=== PATIENT | male | born 1980 | race Caucasian/White ===

== ENCOUNTER → 2019-07-01 | Day surgery (SDC) | payer SELFPAY ==
[~2019-07-01] MED LIST: Bupivacaine 0.5%/EPINEPHrine 1:200,000 50 ML MDV ONE; Dexamethasone 4 MG/ML 5 ML MDV ONE; HYDROmorphone 0.5 MG/0.5 ML Syringe IVPUSH PRN; HYDROmorphone 0.5 MG/0.5 ML Syringe ONE; Iopamidol 612 MG/ML 100 ML Bottle IVPUSH ONE; Lactated Ringers 1,000 ML IV SCH; Lactated Ringers 1,000 ML ONE; Lidocaine 1% 4 ML ONE; Lidocaine 1% with EPINEPHrine 1:100,000 20 ML MDV ONE; Midazolam 1 MG/ML 2 ML SDV ONE; Ondansetron 4 MG/2 ML SDV IVPUSH PRN; Ondansetron 4 MG/2 ML SDV ONE; Propofol 200 MG/20 ML SDV ONE; Rocuronium 50 MG/5 ML Vial ONE; Sodium Chloride 0.9% 1,000 ML IV ONE; Sodium Chloride 0.9% 1,000 ML IV SCH; Sodium Chloride 0.9% 10 ML Syringe FLUSH PRN; Succinylcholine/Sod PF 100 MG/5 ML SYRINGE IV ONE; cefOXitin 2 GM in Premix Bag 1 BAG IV ONE; fentaNYL 100 MCG/2 ML SDV IVPUSH PRN; fentaNYL 250 MCG/5 ML SDV ONE; metroNIDAZOLE/Normal Saline 500 MG in Premix Bag 1 BAG IV ONE
--- NOTE | 2019-07-01 16:46 | EDM.PDOC ---
ED HPI GENERAL MEDICAL PROBLEM - General Chief Complaint: Abdominal Pain Stated Complaint: LOWER ABDOMINAL PAIN Time Seen by Provider: 07/01/19 15:49 Source of Information: Reports: Patient History Limitations: Reports: No Limitations - History of Present Illness INITIAL COMMENTS - FREE TEXT/NARRATIVE: TRIAGE NOTE -- pt presents to ER with c/o of mid lower abdominal pain N/V x 5 hours. repprts last bm yesterday and that he is urinating per his norm. denies recent illness, denies fever. c/o occassional chills. As above. No respiratory symptoms. No chest pain. No fever. No dysuria. No symptom of acute medical illness otherwise. No identified risk factors though the patient does chew tobacco. He has not taken any medication or tried any other measure to moderate symptoms. Patient is nauseated at this time. His abdominal pain is more like an discomfort on exam. Last bowel movement yesterday which was noted to be semi-formed. The patient does have probable issues with constipation. He wonders if "I might be plugged up." Lower Abdominal Pain Score (Numeric/FACES): 9 - Related Data Allergies Allergy/AdvReac Type Severity Reaction Status Date / Time No Known Allergies Allergy Verified 07/01/19 15:30 Home Meds: Home Meds . [No Known Home Meds] 05/01/14 [History] Past Medical History - Past Health History Medical/Surgical History: Denies Medical/Surgical History Social & Family History - Tobacco Use Tobacco Use Within Last Twelve Months: Smokeless Tobacco - Caffeine Use Caffeine Use: Reports: Coffee, Energy Drinks, Soda, Tea - Recreational Drug Use Recreational Drug Use: No ED ROS GENERAL - Review of Systems Review Of Systems: Comprehensive ROS is negative, except as noted in HPI. ED EXAM, GI/ABD - Physical Exam Exam: See Below Exam Limited By: No Limitations General Appearance: Alert, WD/WN, No Apparent Distress Eyes: Bilateral: EOMI Ears: Normal External Exam Nose: Normal Inspection Throat/Mouth: Normal Inspection Head: Atraumatic, Normocephalic Neck: Normal Inspection, Supple Respiratory/Chest: No Respiratory Distress, Lungs Clear, Normal Breath Sounds Cardiovascular: Regular Rate, Rhythm, No Edema GI/Abdominal Exam: Soft, Tender (Very mild tenderness in lower abdomen on deep palpation). No: Guarding, Rigid, Rebound Back Exam: Normal Inspection Extremities: Normal Inspection, Non-Tender Neurological: Alert, Oriented, Normal Cognition, No Motor/Sensory Deficits Psychiatric: Normal Affect, Normal Mood Skin Exam: Warm, Dry Course - Vital Signs Last Recorded V/S: Last Vital Signs Temp 36.3 C 07/01/19 15:26 Pulse 65 07/01/19 15:26 Resp 18 07/01/19 15:26 BP Pulse Ox 100 07/01/19 15:26 - Orders/Labs/Meds Orders: Active Orders 24 hr Category Date Time Status NPO Now [Nothing per Oral Now Diet] [DIET] Diet 07/02/19 Breakfast Ordered Chest 1V Frontal [CR] Stat Exams 07/01/19 17:22 Taken KUB [Abdomen 1V Flat] [CR] Stat Exams 07/01/19 16:18 Taken LACTIC ACID [CHEM] Stat Lab 07/01/19 18:26 Received Sodium Chloride 0.9% @ 150 MLS/HR (1000ml Bag) Med 07/01/19 19:00 Ordered Sodium Chloride 0.9% [Normal Saline] 1,000 ml IV ASDIRECTED Sodium Chloride 0.9% [Saline Flush] Med 07/01/19 17:50 Active 10 ml FLUSH ONETIME PRN cefOXitin [Mefoxin in Dextrose,Iso-Osm 2 GM/50 ML] 2 gm Med 07/01/19 18:54 Ordered Premix Bag 1 bag IV ONETIME metroNIDAZOLE/Normal Saline [Flagyl 500 MG in NS 100 ML Med 07/01/19 18:54 Ordered ] 500 mg Premix Bag 1 bag IV ONETIME Medication Orders Cefoxitin Sodium 2 gm/ Premix 50 mls @ 100 mls/hr IV ONETIME ONE Stop: 07/01/19 19:23 Metronidazole 500 mg/ Premix 100 mls @ 100 mls/hr IV ONETIME ONE Stop: 07/01/19 19:53 Sodium Chloride (Normal Saline) 1,000 mls @ 150 mls/hr IV ASDIRECTED LEATHA Sodium Chloride (Saline Flush) 10 ml FLUSH ONETIME PRN PRN Reason: Keep Vein Open Last Admin: 07/01/19 18:10 Dose: 10 ml Labs: Laboratory Tests 07/01/19 07/01/19 07/01/19 Range/Units 16:30 16:35 16:35 WBC 21.13 H (4.23-9.07) K/mm3 RBC 5.79 (4.63-6.08) M/mm3 Hgb 17.0 (13.7-17.5) gm/dl Hct 49.1 (40.1-51.0) % MCV 84.8 (79.0-92.2) fl MCH 29.4 (25.7-32.2) pg MCHC 34.6 (32.2-35.5) g/dl RDW Std Deviation 40.5 (35.1-43.9) fL Plt Count 401 H (163-337) K/mm3 MPV 8.4 L (9.4-12.3) fl Neutrophils % (Manual) 91 H (40-60) % Band Neutrophils % 0 (0-10) % Lymphocytes % (Manual) 7 L (20-40) % Atypical Lymphs % 0 % Monocytes % (Manual) 1 L (2-10) % Eosinophils % (Manual) 0 L (0.8-7.0) % Basophils % (Manual) 1 (0.2-1.2) Platelet Estimate Adequate Plt Morphology Comment Normal RBC Morph Comment Normal Sodium 140 (136-145) mEq/L Potassium 4.4 (3.5-5.1) mEq/L Chloride 103 (98-107) mEq/L Carbon Dioxide 29 (21-32) mEq/L Anion Gap 12.4 (5-15) BUN 11 (7-18) mg/dL Creatinine 1.0 (0.7-1.3) mg/dL Est Cr Clr Drug Dosing 98.19 mL/min Estimated GFR (MDRD) > 60 (>60) mL/min BUN/Creatinine Ratio 11.0 L (14-18) Glucose 109 H (74-106) mg/dL Calcium 9.5 (8.5-10.1) mg/dL Total Bilirubin 1.0 (0.2-1.0) mg/dL AST 52 H (15-37) U/L ALT 103 H (16-63) U/L Alkaline Phosphatase 80 (46-116) U/L Total Protein 8.6 H (6.4-8.2) g/dl Albumin 4.6 (3.4-5.0) g/dl Globulin 4.0 gm/dL Albumin/Globulin Ratio 1.2 (1-2) Lipase 185 (73-393) U/L Urine Color Yellow (Yellow) Urine Appearance Clear (Clear) Urine pH 8.0 (5.0-8.0) Ur Specific [place] 1.020 (1.005-1.030) Urine Protein Trace H (Negative) Urine Glucose (UA) Negative (Negative) Urine Ketones 2+ H (Negative) Urine Occult Blood Trace-intact H (Negative) Urine Nitrite Negative (Negative) Urine Bilirubin Negative (Negative) Urine Urobilinogen 0.2 (0.2-1.0) Ur Leukocyte Esterase Negative (Negative) Urine RBC 5-10 H (0-5) /hpf Urine WBC 0-5 (0-5) /hpf Ur Squamous Epith Cells 5-10 H (0-5) /hpf Urine Bacteria Not seen (FEW) /hpf Urine Mucus Not seen (FEW) /hpf Meds: Medications Generic Name Dose Route Start Last Admin Trade Name Freq PRN Reason Stop Dose Admin Cefoxitin Sodium 2 gm/ Premix 50 mls @ 100 mls/hr 07/01/19 18:54 IV 07/01/19 19:23 ONETIME ONE Metronidazole 500 mg/ Premix 100 mls @ 100 mls/hr 07/01/19 18:54 IV 07/01/19 19:53 ONETIME ONE Sodium Chloride 1,000 mls @ 150 mls/hr 07/01/19 19:00 Normal Saline IV ASDIRECTED LEATHA Sodium Chloride 10 ml 07/01/19 17:50 07/01/19 18:10 Saline Flush FLUSH 10 ml ONETIME PRN Administration Keep Vein Open Discontinued Medications Generic Name Dose Route Start Last Admin Trade Name Freq PRN Reason Stop Dose Admin Sodium Chloride 1,000 mls @ 1,000 mls/hr 07/01/19 16:10 07/01/19 16:40 Normal Saline IV 07/01/19 17:09 1,000 mls/hr ONETIME ONE Administration Iopamidol 100 ml 07/01/19 17:50 07/01/19 18:10 Isovue-300 (61%) IVPUSH 07/01/19 17:51 100 ml ONETIME ONE Administration - Re-Assessments/Exams Free Text/Narrative Re-Assessment/Exam: 07/01/19 18:56 The patient's exam was fairly benign but he had a 21,[address] count and a CT of the abdomen was done. Radiologist report suggestive of early appendicitis. Discussed with on-call surgeon Dr. Andrews. Antibiotics are ordered, n.p.o., IV fluids OR notified and he will have surgery shortly. Last time he had anything to eat was sometime last night. Probably 18 hours at this point. Last thing he had to drink was a small amount of fluids probably 4 hours ago. Discussed with the patient who agrees with the plan. Departure - Departure Time of Disposition: 18:59 Disposition: Still A Patient 28 Condition: Fair Clinical Impression: Acute appendicitis Qualifiers: Acute appendicitis type: unspecified acute appendicitis type Qualified Code(s) : K35.80 - Unspecified acute appendicitis - Discharge Information Referrals: PCP,None [Primary Care Provider] - Forms: ED Department Discharge Sepsis Event Note - Evaluation Sepsis Screening Result: No Definite Risk - Focused Exam Vital Signs: Vital Signs Temp Pulse Resp Pulse Ox 07/01/19 15:26 36.3 C 65 18 100 Date Exam was Performed: 07/01/19 Time Exam was Performed: 18:56 - My Orders Last 24 Hours: My Active Orders 07/01/19 16:18 KUB [Abdomen 1V Flat] [CR] Stat 07/01/19 17:22 Chest 1V Frontal [CR] Stat 07/01/19 17:50 Sodium Chloride 0.9% [Saline Flush] 10 ml FLUSH ONETIME PRN 07/01/19 18:26 LACTIC ACID [CHEM] Stat 07/01/19 18:54 cefOXitin [Mefoxin in Dextrose,Iso-Osm 2 GM/50 ML] 2 gm Premix Bag 1 bag IV ONETIME metroNIDAZOLE/Normal Saline [Flagyl 500 MG in NS 100 ML] 500 mg Premix Bag 1 bag IV ONETIME 07/01/19 19:00 Sodium Chloride 0.9% @ 150 MLS/HR (1000ml Bag) Sodium Chloride 0.9% [Normal Saline] 1,000 ml IV ASDIRECTED 07/02/19 Breakfast NPO Now [Nothing per Oral Now Diet] [DIET] - Assessment/Plan Last 24 Hours: My Active Orders 07/01/19 16:18 KUB [Abdomen 1V Flat] [CR] Stat 07/01/19 17:22 Chest 1V Frontal [CR] Stat 07/01/19 17:50 Sodium Chloride 0.9% [Saline Flush] 10 ml FLUSH ONETIME PRN 07/01/19 18:26 LACTIC ACID [CHEM] Stat 07/01/19 18:54 cefOXitin [Mefoxin in Dextrose,Iso-Osm 2 GM/50 ML] 2 gm Premix Bag 1 bag IV ONETIME metroNIDAZOLE/Normal Saline [Flagyl 500 MG in NS 100 ML] 500 mg Premix Bag 1 bag IV ONETIME 07/01/19 19:00 Sodium Chloride 0.9% @ 150 MLS/HR (1000ml Bag) Sodium Chloride 0.9% [Normal Saline] 1,000 ml IV ASDIRECTED 07/02/19 Breakfast NPO Now [Nothing per Oral Now Diet] [DIET]
--- NOTE | 2019-07-01 18:37 | CT ---
CT abdomen and pelvis Technique: Multiple axial sections were obtained from above the dome of the diaphragm inferiorly through the pubic symphysis. Intravenous contrast was utilized. No oral contrast has been given. Delayed images were obtained through the bladder. Comparison: No prior abdominal imaging is available. Findings: Appendix is dilated. Dilated appendix contains some calcifications. Mild surrounding inflammatory change is seen. Findings are felt compatible with early appendicitis. Visualized lung bases shows minimal atelectasis. Liver contains no focal abnormality. Spleen appears within normal limits. Small hiatal hernia is seen. Adrenal glands show no nodule. Kidneys show symmetric contrast enhancement without hydronephrosis. Calcification noted within the mid right kidney compatible with a nonobstructing calculus. Aorta shows no aneurysm. No retroperitoneal adenopathy or mesenteric abnormalities are seen. No pelvic mass or adenopathy is seen. No other inflammatory change is seen. No free fluid or findings of abscess are seen. Gallbladder contains no calcified gallstones. Pancreas appears within normal limits. Delayed images shows contrast within the distal ureters and within the bladder. Bone window settings were reviewed which shows mild degenerative change within the spine. No acute osseous finding is appreciated. Impression: 1. Findings compatible with early appendicitis. 2. Other findings which are believed to be incidental as described above. Diagnostic code #5 This report was dictated in MDT
--- NOTE | 2019-07-01 18:56 | CR ---
Chest: PA view of the chest was obtained. Comparison: No prior chest x-ray. Heart size and mediastinum are normal. Lungs are clear with no acute parenchymal change. Bony structures are grossly intact. Impression: 1. Nothing acute is seen on PA chest x-ray. Diagnostic code #1 This report was dictated in MDT
--- NOTE | 2019-07-01 18:56 | CR ---
Abdomen: Supine view of the abdomen was obtained. Comparison: No previous abdominal x-ray. Bowel gas pattern appears within normal limits. Calcifications are seen with the left side of the pelvis believed to represent phleboliths. Nothing acute is seen within the osseous structures. Impression: 1. Nothing acute seen on supine abdominal x-ray. Diagnostic code #2 This report was dictated in MDT
--- NOTE | 2019-07-01 20:08 | PCM.HP.2 ---
H&P History of Present Illness - General Date of Service: 07/01/19 Admit Problem/Dx: Admission Diagnosis/Problem Admission Diagnosis/Problem Appendicitis Source of Information: Patient, Provider History Limitations: Reports: No Limitations - History of Present Illness Initial Comments - Free Text/Narative: The patient is a 38 y/o male who presents with acute onset abdominal pain today for the past 6-8hrs. He also reports nausea and vomiting. He has had decreased appetite. He reports having abnormal stooling this am with loose stool and a feeling of incomplete evacuation. He was seen and evaluated in the ED with laboratory studies and a CT abdomen/ pelvis. He has WBC >21K and CT findings of appendicitis. Lower Abdominal Pain Score (Numeric/FACES): 9 - Related Data Allergies/Adverse Reactions: Allergies Allergy/AdvReac Type Severity Reaction Status Date / Time No Known Allergies Allergy Verified 07/01/19 15:30 Home Medications: Home Meds . [No Known Home Meds] 05/01/14 [History] Past Medical History - Past Health History Medical/Surgical History: Denies Medical/Surgical History Social & Family History - Family History Cardiac: Reports: [place] Oncologic: Reports: None - Caffeine Use Caffeine Use: Reports: Coffee, Energy Drinks, Soda, Tea - Recreational Drug Use Recreational Drug Use: No H&P Review of Systems - Review of Systems: Review Of Systems: See Below General: Reports: No Symptoms HEENT: Reports: No Symptoms Pulmonary: Reports: No Symptoms Cardiovascular: Reports: No Symptoms Gastrointestinal: Reports: Abdominal Pain, Anorexia, Nausea, Vomiting Genitourinary: Reports: No Symptoms Musculoskeletal: Reports: No Symptoms Skin: Reports: No Symptoms Neurological: Reports: No Symptoms Hematologic/Lymphatic: Reports: No Symptoms Exam - Exam Exam: See Below - Vital Signs Vital Signs: Last Vital Signs Temp 36.3 C 07/01/19 15:26 Pulse 65 07/01/19 15:26 Resp 18 07/01/19 15:26 BP Pulse Ox 100 07/01/19 15:26 Weight: 106.594 kg - Exam Quality Assessment: No: Supplemental Oxygen General: Alert, Oriented HEENT: Conjunctiva Clear, EOMI Neck: Supple Lungs: Normal Respiratory Effort GI/Abdominal Exam: Soft, No Distention, Rebound (in RLQ), Tender (in infraumbilical area and RLQ) Extremities: Normal Inspection, No Pedal Edema Peripheral Pulses: 2+: Dorsalis Pedis (L), Dorsalis Pedis (R) Skin: Warm, Dry, Intact Neurological: Cranial Nerves Intact Neuro Extensive - Mental Status: Normal Mood/Affect - Patient Data Lab Results Last 24 hrs: Laboratory Results - last 24 hr 07/01/19 07/01/19 07/01/19 Range/Units 16:30 16:35 16:35 WBC 21.13 H (4.23-9.07) K/mm3 RBC 5.79 (4.63-6.08) M/mm3 Hgb 17.0 (13.7-17.5) gm/dl Hct 49.1 (40.1-51.0) % MCV 84.8 (79.0-92.2) fl MCH 29.4 (25.7-32.2) pg MCHC 34.6 (32.2-35.5) g/dl RDW Std Deviation 40.5 (35.1-43.9) fL Plt Count 401 H (163-337) K/mm3 MPV 8.4 L (9.4-12.3) fl Neutrophils % (Manual) 91 H (40-60) % Band Neutrophils % 0 (0-10) % Lymphocytes % (Manual) 7 L (20-40) % Atypical Lymphs % 0 % Monocytes % (Manual) 1 L (2-10) % Eosinophils % (Manual) 0 L (0.8-7.0) % Basophils % (Manual) 1 (0.2-1.2) Platelet Estimate Adequate Plt Morphology Comment Normal RBC Morph Comment Normal Sodium 140 (136-145) mEq/L Potassium 4.4 (3.5-5.1) mEq/L Chloride 103 (98-107) mEq/L Carbon Dioxide 29 (21-32) mEq/L Anion Gap 12.4 (5-15) BUN 11 (7-18) mg/dL Creatinine 1.0 (0.7-1.3) mg/dL Est Cr Clr Drug Dosing 98.19 mL/min Estimated GFR (MDRD) > 60 (>60) mL/min BUN/Creatinine Ratio 11.0 L (14-18) Glucose 109 H (74-106) mg/dL Lactic Acid (0.4-2.0) mmol/L Calcium 9.5 (8.5-10.1) mg/dL Total Bilirubin 1.0 (0.2-1.0) mg/dL AST 52 H (15-37) U/L ALT 103 H (16-63) U/L Alkaline Phosphatase 80 (46-116) U/L Total Protein 8.6 H (6.4-8.2) g/dl Albumin 4.6 (3.4-5.0) g/dl Globulin 4.0 gm/dL Albumin/Globulin Ratio 1.2 (1-2) Lipase 185 (73-393) U/L Urine Color Yellow (Yellow) Urine Appearance Clear (Clear) Urine pH 8.0 (5.0-8.0) Ur Specific [place] 1.020 (1.005-1.030) Urine Protein Trace H (Negative) Urine Glucose (UA) Negative (Negative) Urine Ketones 2+ H (Negative) Urine Occult Blood Trace-intact H (Negative) Urine Nitrite Negative (Negative) Urine Bilirubin Negative (Negative) Urine Urobilinogen 0.2 (0.2-1.0) Ur Leukocyte Esterase Negative (Negative) Urine RBC 5-10 H (0-5) /hpf Urine WBC 0-5 (0-5) /hpf Ur Squamous Epith Cells 5-10 H (0-5) /hpf Urine Bacteria Not seen (FEW) /hpf Urine Mucus Not seen (FEW) /hpf 07/01/19 Range/Units 18:26 WBC (4.23-9.07) K/mm3 RBC (4.63-6.08) M/mm3 Hgb (13.7-17.5) gm/dl Hct (40.1-51.0) % MCV (79.0-92.2) fl MCH (25.7-32.2) pg MCHC (32.2-35.5) g/dl RDW Std Deviation (35.1-43.9) fL Plt Count (163-337) K/mm3 MPV (9.4-12.3) fl Neutrophils % (Manual) (40-60) % Band Neutrophils % (0-10) % Lymphocytes % (Manual) (20-40) % Atypical Lymphs % % Monocytes % (Manual) (2-10) % Eosinophils % (Manual) (0.8-7.0) % Basophils % (Manual) (0.2-1.2) Platelet Estimate Plt Morphology Comment RBC Morph Comment Sodium (136-145) mEq/L Potassium (3.5-5.1) mEq/L Chloride (98-107) mEq/L Carbon Dioxide (21-32) mEq/L Anion Gap (5-15) BUN (7-18) mg/dL Creatinine (0.7-1.3) mg/dL Est Cr Clr Drug Dosing mL/min Estimated GFR (MDRD) (>60) mL/min BUN/Creatinine Ratio (14-18) Glucose (74-106) mg/dL Lactic Acid 1.2 (0.4-2.0) mmol/L Calcium (8.5-10.1) mg/dL Total Bilirubin (0.2-1.0) mg/dL AST (15-37) U/L ALT (16-63) U/L Alkaline Phosphatase (46-116) U/L Total Protein (6.4-8.2) g/dl Albumin (3.4-5.0) g/dl Globulin gm/dL Albumin/Globulin Ratio (1-2) Lipase (73-393) U/L Urine Color (Yellow) Urine Appearance (Clear) Urine pH (5.0-8.0) Ur Specific [place] (1.005-1.030) Urine Protein (Negative) Urine Glucose (UA) (Negative) Urine Ketones (Negative) Urine Occult Blood (Negative) Urine Nitrite (Negative) Urine Bilirubin (Negative) Urine Urobilinogen (0.2-1.0) Ur Leukocyte Esterase (Negative) Urine RBC (0-5) /hpf Urine WBC (0-5) /hpf Ur Squamous Epith Cells (0-5) /hpf Urine Bacteria (FEW) /hpf Urine Mucus (FEW) /hpf Result Diagrams: 07/01/19 16:35 07/01/19 16:35 Sepsis Event Note - Evaluation Sepsis Screening Result: No Definite Risk - Focused Exam Vital Signs: Vital Signs Temp Pulse Resp Pulse Ox 07/01/19 15:26 36.3 C 65 18 100 Date Exam was Performed: 07/01/19 Time Exam was Performed: 19:46 *Q Meaningful Use (ADM) - VTE Risk Assess *Q Each Risk Factor Represents 1 Point: Minor Surgery Planned, Obesity ( BMI > 25 kg/m2) Total Score 1 Point Risk Factors: 2 - Problem List (1) Acute appendicitis SNOMED Code(s): 94961722 ICD Code: K35.80 - UNSPECIFIED ACUTE APPENDICITIS Status: Acute Current Visit: Yes Qualifiers: Acute appendicitis type: unspecified acute appendicitis type Qualified Code (s): K35.80 - Unspecified acute appendicitis Problem List Initiated/Reviewed/Updated: Yes Orders Last 24hrs: Active Orders 24 hr Category Date Time Status Patient Status [ADT] Routine ADT 07/01/19 19:28 Active NPO Now [Nothing per Oral Now Diet] [DIET] Diet 07/02/19 Breakfast Active Lactated Ringers [Ringers, Lactated] 1,000 ml Med 07/01/19 19:30 Active IV ASDIRECTED Sodium Chloride 0.9% [Normal Saline] 1,000 ml Med 07/01/19 19:00 Active IV ASDIRECTED Sodium Chloride 0.9% [Saline Flush] Med 07/01/19 17:50 Active 10 ml FLUSH ONETIME PRN metroNIDAZOLE/Normal Saline [Flagyl 500 MG in NS 100 ML Med 07/01/19 18:54 Active ] 500 mg Premix Bag 1 bag IV ONETIME Schedule Procedure [COMM] Stat Oth 07/01/19 19:28 Ordered Medication Orders Metronidazole 500 mg/ Premix 100 mls @ 100 mls/hr IV ONETIME ONE Stop: 07/01/19 19:53 Last Admin: 07/01/19 19:41 Dose: 100 mls/hr Sodium Chloride (Normal Saline) 1,000 mls @ 150 mls/hr IV ASDIRECTED [facility] [place] Last Admin: 07/01/19 19:03 Dose: 150 mls/hr Lactated Ringer's (Ringers, Lactated) 1,000 mls @ 200 mls/hr IV ASDIRECTED [facility] [place] Last Admin: 07/01/19 19:41 Dose: 200 mls/hr Sodium Chloride (Saline Flush) 10 ml FLUSH ONETIME PRN PRN Reason: Keep Vein Open Last Admin: 07/01/19 18:10 Dose: 10 ml Assessment/Plan Comment:: 38 y/o gentleman who presents with findings of acute appendicitis -Plan for laparoscopic appendectomy, possible open. Discussed risks of bleeding , infection, and damage to surrounding intra-abdominal structures. His written consent was obtained. -N.p.o. with IV fluids -IV cefoxitin 2 g x 1 and metronidazole 500 mg x 1 -We will assess need for inpatient stay based on intraoperative findings Yasmin Arteaga MD General Surgery - Mortality Measure Prognosis:: Good
--- NOTE | 2019-07-01 20:11 | PCM.PREANE ---
Preanesthetic Assessment - Procedure Proposed Procedure: lap appy - Anesthesia/Transfusion/Family Hx Anesthesia History: No Prior Anesthesia Family History of Anesthesia Reaction: No Transfusion History: No Prior Transfusion(s) - Review of Systems Pulmonary: No Symptoms Cardiovascular: No Symptoms Gastrointestinal: Abdominal Pain (today since 10), Nausea (today since 10), Vomiting Neurological: No Symptoms Other: Reports: None - Physical Assessment NPO Status Date: 07/01/19 NPO Status Time: 14:30 Vital Signs: Last Vital Signs Temp 97.4 F 07/01/19 15:26 Pulse 65 07/01/19 15:26 Resp 18 07/01/19 15:26 BP Pulse Ox 100 07/01/19 15:26 Height: 5 ft 9 in Weight: 106.594 kg ASA Class: 2E Mental Status: Alert & Oriented x3 Airway Class: Mallampati = 1 Dentition: Reports: Normal Dentition Thyro-Mental Finger Breadths: 3 Mouth Opening Finger Breadths: 3 ROM/Head Extension: Full Lungs: Clear to Auscultation, Normal Respiratory Effort Cardiovascular: Regular Rate, Regular Rhythm - Lab Values: Laboratory Last Values WBC 21.13 K/mm3 (4.23-9.07) H 07/01/19 16:35 RBC 5.79 M/mm3 (4.63-6.08) 07/01/19 16:35 Hgb 17.0 gm/dl (13.7-17.5) 07/01/19 16:35 Hct 49.1 % (40.1-51.0) 07/01/19 16:35 MCV 84.8 fl (79.0-92.2) 07/01/19 16:35 MCH 29.4 pg (25.7-32.2) 07/01/19 16:35 MCHC 34.6 g/dl (32.2-35.5) 07/01/19 16:35 RDW Std Deviation 40.5 fL (35.1-43.9) 07/01/19 16:35 Plt Count 401 K/mm3 (163-337) H 07/01/19 16:35 MPV 8.4 fl (9.4-12.3) L 07/01/19 16:35 Neutrophils % (Manual) 91 % (40-60) H 07/01/19 16:35 Band Neutrophils % 0 % (0-10) 07/01/19 16:35 Lymphocytes % (Manual) 7 % (20-40) L 07/01/19 16:35 Atypical Lymphs % 0 % 07/01/19 16:35 Monocytes % (Manual) 1 % (2-10) L 07/01/19 16:35 Eosinophils % (Manual) 0 % (0.8-7.0) L 07/01/19 16:35 Basophils % (Manual) 1 (0.2-1.2) 07/01/19 16:35 Platelet Estimate Adequate 07/01/19 16:35 Plt Morphology Comment Normal 07/01/19 16:35 RBC Morph Comment Normal 07/01/19 16:35 Sodium 140 mEq/L (136-145) 07/01/19 16:35 Potassium 4.4 mEq/L (3.5-5.1) 07/01/19 16:35 Chloride 103 mEq/L (98-107) 07/01/19 16:35 Carbon Dioxide 29 mEq/L (21-32) 07/01/19 16:35 Anion Gap 12.4 (5-15) 07/01/19 16:35 BUN 11 mg/dL (7-18) 07/01/19 16:35 Creatinine 1.0 mg/dL (0.7-1.3) 07/01/19 16:35 Est Cr Clr Drug Dosing 98.19 mL/min 07/01/19 16:35 Estimated GFR (MDRD) > 60 mL/min (>60) 07/01/19 16:35 BUN/Creatinine Ratio 11.0 (14-18) L 07/01/19 16:35 Glucose 109 mg/dL (74-106) H 07/01/19 16:35 Lactic Acid 1.2 mmol/L (0.4-2.0) 07/01/19 18:26 Calcium 9.5 mg/dL (8.5-10.1) 07/01/19 16:35 Total Bilirubin 1.0 mg/dL (0.2-1.0) 07/01/19 16:35 AST 52 U/L (15-37) H 07/01/19 16:35 ALT 103 U/L (16-63) H 07/01/19 16:35 Alkaline Phosphatase 80 U/L (46-116) 07/01/19 16:35 Total Protein 8.6 g/dl (6.4-8.2) H 07/01/19 16:35 Albumin 4.6 g/dl (3.4-5.0) 07/01/19 16:35 Globulin 4.0 gm/dL 07/01/19 16:35 Albumin/Globulin Ratio 1.2 (1-2) 07/01/19 16:35 Lipase 185 U/L (73-393) 07/01/19 16:35 Urine Color Yellow (Yellow) 07/01/19 16:30 Urine Appearance Clear (Clear) 07/01/19 16:30 Urine pH 8.0 (5.0-8.0) 07/01/19 16:30 Ur Specific [place] 1.020 (1.005-1.030) 07/01/19 16:30 Urine Protein Trace (Negative) H 07/01/19 16:30 Urine Glucose (UA) Negative (Negative) 07/01/19 16:30 Urine Ketones 2+ (Negative) H 07/01/19 16:30 Urine Occult Blood Trace-intact (Negative) H 07/01/19 16:30 Urine Nitrite Negative (Negative) 07/01/19 16:30 Urine Bilirubin Negative (Negative) 07/01/19 16:30 Urine Urobilinogen 0.2 (0.2-1.0) 07/01/19 16:30 Ur Leukocyte Esterase Negative (Negative) 07/01/19 16:30 Urine RBC 5-10 /hpf (0-5) H 07/01/19 16:30 Urine WBC 0-5 /hpf (0-5) 07/01/19 16:30 Ur Squamous Epith Cells 5-10 /hpf (0-5) H 07/01/19 16:30 Urine Bacteria Not seen /hpf (FEW) 07/01/19 16:30 Urine Mucus Not seen /hpf (FEW) 07/01/19 16:30 - Allergies Allergies/Adverse Reactions: Allergies Allergy/AdvReac Type Severity Reaction Status Date / Time No Known Allergies Allergy Verified 07/01/19 15:30 - Blood Blood Available: No - Acknowledgements Anesthesia Type Planned: General Anesthesia Pt an Appropriate Candidate for the Planned Anesthesia: Yes Alternatives and Risks of Anesthesia Discussed w Pt/Guardian: Yes Pt/Guardian Understands and Agrees with Anesthesia Plan: Yes PreAnesthesia Questionnaire - Past Health History Medical/Surgical History: Denies Medical/Surgical History Cardiovascular History: Reports: None Respiratory History: Reports: None Gastrointestinal History: Reports: None Oncologic (Cancer) History: Reports: None - SUBSTANCE USE Tobacco Use Within Last Twelve Months: Smokeless Tobacco Second Hand Smoke Exposure: No Days Per Week of Alcohol Use: 1 Recreational Drug Use History: No - HOME MEDS Home Medications: Home Meds Acetaminophen/HYDROcodone [[place] 325-5 MG] 1 tab PO Q4H PRN 14 Days #20 tablet 07/01/19 [Rx] Docusate Sodium [Colace] 100 mg PO BID 20 Days #40 cap 07/01/19 [Rx] Ibuprofen 600 mg PO Q6HR PRN 14 Days #80 tablet 07/01/19 [Rx] - CURRENT (IN HOUSE) MEDS Current Meds: Current Medications Sodium Chloride (Normal Saline) 1,000 mls @ 150 mls/hr IV ASDIRECTED [facility] Last Admin: 07/01/19 19:03 Dose: 150 mls/hr Lactated Ringer's (Ringers, Lactated) 1,000 mls @ 200 mls/hr IV ASDIRECTED [facility] Last Admin: 07/01/19 19:41 Dose: 200 mls/hr Sodium Chloride (Saline Flush) 10 ml FLUSH ONETIME PRN PRN Reason: Keep Vein Open Last Admin: 07/01/19 18:10 Dose: 10 ml Discontinued Medications Bupivacaine HCl/Epinephrine Bitart (Marcaine 0.5%/Epinephrine 1:200,000) Confirm Administered Dose 50 ml .ROUTE .STK-MED ONE Stop: 07/01/19 19:38 Fentanyl (Sublimaze) Confirm Administered Dose 250 mcg .ROUTE .STK-MED ONE Stop: 07/01/19 19:53 Sodium Chloride (Normal Saline) 1,000 mls @ 1,000 mls/hr IV ONETIME ONE Stop: 07/01/19 17:09 Last Admin: 07/01/19 16:40 Dose: 1,000 mls/hr Cefoxitin Sodium 2 gm/ Premix 50 mls @ 100 mls/hr IV ONETIME ONE Stop: 07/01/19 19:23 Last Admin: 07/01/19 19:03 Dose: 100 mls/hr Metronidazole 500 mg/ Premix 100 mls @ 100 mls/hr IV ONETIME ONE Stop: 07/01/19 19:53 Last Admin: 07/01/19 19:41 Dose: 100 mls/hr Lidocaine HCl (Xylocaine-Mpf 1%) Confirm Administered Dose 4 mls @ as directed .ROUTE .STK-MED ONE Stop: 07/01/19 19:53 Iopamidol (Isovue-300 (61%)) 100 ml IVPUSH ONETIME ONE Stop: 07/01/19 17:51 Last Admin: 07/01/19 18:10 Dose: 100 ml Lidocaine/Epinephrine (Xylocaine 1% With Epinephrine 1:100,000) Confirm Administered Dose 20 ml .ROUTE .STK-MED ONE Stop: 07/01/19 19:38 Lidocaine/Epinephrine (Xylocaine 1% With Epinephrine 1:100,000) Confirm Administered Dose 20 ml .ROUTE .STK-MED ONE Stop: 07/01/19 19:38 Midazolam HCl (Versed 1 Mg/Ml) Confirm Administered Dose 2 mg .ROUTE .STK-MED ONE Stop: 07/01/19 19:53 Ondansetron HCl (Zofran) Confirm Administered Dose 4 mg .ROUTE .STK-MED ONE Stop: 07/01/19 19:53 Propofol (Diprivan 20 Ml) Confirm Administered Dose 200 mg .ROUTE .STK-MED ONE Stop: 07/01/19 19:53 Rocuronium [place] (Zemuron) Confirm Administered Dose 50 mg .ROUTE .STK-MED ONE Stop: 07/01/19 19:53
[2019-07-01 20:25] VITALS: PULSE 81
--- NOTE | 2019-07-01 21:42 | PCM.OPNOTE ---
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
--- NOTE | 2019-07-01 21:43 | PCM.POSTAN ---
POST ANESTHESIA ASSESSMENT - MENTAL STATUS Mental Status: Somnolent - VITAL SIGNS Vital Signs: Last Vital Signs Temp 97.4 F 07/01/19 15:26 Pulse 81 07/01/19 20:24 Resp 17 07/01/19 20:24 BP 160/84 H 07/01/19 20:24 Pulse Ox 97 07/01/19 20:24 - RESPIRATORY Respiratory Status: Respiratory Rate WNL, Airway Patent, O2 Saturation Stable, Supplemental Oxygen - CARDIOVASCULAR CV Status: Pulse Rate WNL, Blood Pressure Stable - GASTROINTESTINAL GI Status: No Symptoms - PAIN Pain Score: 0 - POST OP HYDRATION Hydration Status: Adequate & Stable - OBSERVATIONS Free Text/Narrative:: rests-
--- NOTE | 2019-07-01 21:47 | PCM.PRNOTE ---
- Free Text/Narrative Note: Operative Report Date of surgery: July 01, 2019 Preoperative diagnosis: acute appendicitis. Postoperative diagnosis: same Procedure performed: laparoscopic appendectomy Surgeon: Dr. Yasmin Arteaga Manager Plant: KAREN Ramirez student Anesthesia: General Pastry Cook Helper: George Gross CRNA Estimated blood loss: 5 mL IV fluids: 1200 mL Urine output: 0 mL, patient voided prior to OR Drains and lines: None Findings: Acute appendicitis, not ruptured Pathology: Appendix Indications for procedure: The patient is a 38-year-old gentleman who presented to the emergency department with abdominal pain. He had evaluation with laboratory blood work and CT scan, and was found to have appendicitis. He was a consented for a laparoscopic appendectomy, possible open. After discussion of risks of bleeding, infection, and risk to intra-abdominal structures, his written consent was obtained Description of procedure: The patient was taken back to the operating room and placed in supine position on the operating table. SCD boots were in place and functional prior to the start of the procedure. Preoperative antibiotics were administered: Metronidazole 500 mg IV x1 and cefoxitin 2 g IV x1. The patient had successful induction of general anesthesia and was intubated without difficulty. Pt was then prepped and draped in standard surgical fashion and a timeout was performed. We began by making a 15 mm incision in the infraumbilical skin and deepened down to level of the fascia which was then grasped and incised sharply. We entered the peritoneum and then placed stay sutures of 0 Vicryl on the fascial edges. A 12 mm Bazan port was then placed into the umbilicus and the balloon was inflated. The abdomen was insufflated to 15 mmHg a 5 mm camera was inserted. There was no evidence of any injury created from entry into the abdomen. A TA P block was performed using mixed 1% lidocaine with epinephrine and 0.5% bupivacaine with epinephrine. The patient was then positioned in Trendelenburg with right side elevated. We then proceeded to place a 5 mm port under direct visualization in the suprapubic midline and an additional 5mm port in the left lower quadrant. The small bowel was then moved away from the cecum , and we were able to visualize and mobilize the appendix. The appendix was firm and injected. The mesoappendix dissected from the appendix using a LigaSure device. The appendix was then taken with a tissue staple load. The specimen was in place in the Endo Catch bag. We then inspected and mopped up any blood in the area using a Ray-Naya, which was promptly removed. There was no active bleeding at the end of this case. The abdomen was then desufflated and the umbilical fascia closed with 0 Vicryl sutures and the stay sutures were tied, effectively closing the umbilical port site. The skin was then reapproximated at all port sites using a 4-0 Monocryl subcutaneous stitch and covered with Dermabond surgical glue. The patient tolerated the procedure well. He was extubated and transported to the PACU in stable condition. All sponge and needle counts were correct. I was present and scrubbed for the entirety of the procedure. Yasmin Arteaga MD General Surgery
--- NOTE | 2019-07-01 21:58 | PCM48HPAN ---
Post Anesthesia Note - EVALUATION WITHIN 48HRS OF ANESTHETIC Vital Signs in Normal Range: Yes Patient Participated in Evaluation: Yes Respiratory Function Stable: Yes Airway Patent: Yes Cardiovascular Function Stable: Yes Hydration Status Stable: Yes Pain Control Satisfactory: Yes Nausea and Vomiting Control Satisfactory: Yes Mental Status Recovered: Yes Vital Signs: Last Vital Signs Temp 98.4 F 07/01/19 21:35 Pulse 81 07/01/19 20:24 Resp 19 07/01/19 21:45 BP 128/66 07/01/19 21:45 Pulse Ox 95 07/01/19 21:45 - COMMENTS/OBSERVATIONS Free Text/Narrative:: Still on oxygen. Denies pain. Rests.
[2019-07-01 23:19] VITALS: BP 120/57
== END | disposition home or self-care (01) ==
LOC: JD.ED 15:10 → JD.SDS 19:28
PROVIDERS: ATTEND Surgery
DX: K35.33 Acute appendicitis with perforation, localized peritonitis, and gangrene, with abscess (principal); F17.290 Nicotine dependence, other tobacco product, uncomplicated
CPT/HCPCS: 36415; 44970; 71045; 74018; 74177; 80053; 81001; 83605; 83690; 85007; 85027; 96361; 96365; 99285; J0330; J0694; J1100; J1170; J2001; J2250; J2370; J2405; J2704; J2710; J3010; J3490; J7030; J7120; Q9967

== ENCOUNTER 2022-04-25 11:09 | Emergency (ER) | payer OTHER ==
[2022-04-25] MEDS ORDERED: Sodium Chloride 0.9% 10 ML Syringe FLUSH PRN (11:26)
[2022-04-25] MEDS ORDERED: Ondansetron 4 MG/2 ML SDV IVPUSH ONE (11:26)
[2022-04-25] MEDS ORDERED: Sodium Chloride 0.9% 1,000 ML IV SCH (11:30)
[2022-04-25] MEDS ORDERED: HYDROmorphone 1 MG/ML Syringe IVPUSH STA (11:43)
[2022-04-25] MEDS ORDERED: Ketorolac 30 MG/ML SDV IVPUSH ONE (14:28)
[2022-04-25 15:15] VITALS: BP 111/75; PULSE 76
== END 2022-04-25 15:15 | disposition home or self-care (01) ==
LOC: JD.ED 11:09
DX: N13.2 Hydronephrosis with renal and ureteral calculous obstruction (principal); R00.1 Bradycardia, unspecified; E66.9 Obesity, unspecified; Z68.38 Body mass index [BMI] 38.0-38.9, adult; Z90.49 Acquired absence of other specified parts of digestive tract
CPT/HCPCS: 36415; 74176; 80053; 81001; 85025; 93225; 93226; 96361; 96374; 96375; 99284; J1170; J1885; J2405; J3490; J7030